=== PATIENT | female | born 1980 | race Caucasian/White ===

== ENCOUNTER 2017-01-18 13:13 | Emergency (ER) | payer OTHER ==
[~2017-01-18] VITALS: Ht 172.7 cm; Wt 68.0 kg
[2017-01-18] MEDS ORDERED: NOHOMEMEDICATIONS (13:36)
[2017-01-18] MEDS ORDERED: TRAMADOL 50 MG50 MG PO (14:43)
[2017-01-18 16:01] VITALS: BP 132/71
== END 2017-01-18 16:01 | disposition home or self-care (01) ==
LOC: ER 13:13
DX: M20.11 Hallux valgus (acquired), right foot (principal); F43.10 Post-traumatic stress disorder, unspecified; G43.909 Migraine, unspecified, not intractable, without status migrainosus; F41.9 Anxiety disorder, unspecified; F31.9 Bipolar disorder, unspecified; F10.99 Alcohol use, unspecified with unspecified alcohol-induced disorder

== ENCOUNTER 2018-01-31 10:35 | Emergency (ER) | payer OTHER ==
[~2018-01-31] VITALS: Ht 175.3 cm; Wt 61.2 kg
--- NOTE | ~2018-01-31 | EKG ---
[address] [place] [address] ELECTROCARDIOGRAM REPORT Name: MAUREEN GUERRERO Room #: REG EDGARD Wright#: [id number] Admission: 01/31/18 Attend Phys: Discharge: Date of : 84 Report #: [id number] THIS REPORT FOR: //name// [facility] ED Test Date: 2018-01-31 Test Time: 11:57:33 Pat Name: MAUREEN GUERRERO Department: Room: Gender: F Quality Specialist: ADA : 1980 Requested By: Sergio Farias Order Number: [id number] MD: Rob Ambrocio Measurements Intervals [place] Rate: 91 P: 53 MD: 147 QRS: -18 QRSD: 97 T: 1 QT: 400 QTc: 493 Interpretive Statements Sinus rhythm Borderline left axis deviation No previous ECG available for comparison Electronically Signed On 01-31-2018 13:30:52 CDT by Rob Ambrocio [email or web address] <ELECTRONICALLY SIGNED> By: Rob Ambrocio MD 01/31/18 1330 1157 1157 Rob Ambrocio MD /JUNG
[~2018-01-31 10:35] MED LIST: NOHOMEMEDICATIONS; ONDANSETRON HCL4 M2 PO; TRAMADOL 50 MG50 MG PO; XANAX 0.5 MG0.5 MG PO
[2018-01-31 11:05] LABS: URINE BILIRUBIN NEGATIVE (Negative); URINE BLOOD TRACE (Negative); URINE CLARITY CLEAR; URINE COLOR YELLOW; URINE GLUCOSE-RANDOM* NEGATIVE (Negative); URINE KETONES NEGATIVE (Negative); URINE LEUKOCYTES-REFLEX 1+ (Negative); URINE NITRITE-REFLEX NEGATIVE (Negative); URINE PROTEIN (DIPSTICK) NEGATIVE (Negative); URINE SPECIFIC GRAVITY <= 1.005 (1.005-1.035); URINE UROBILINOGEN 0.2 E.U./dl (0.2-1.0)
[2018-01-31 11:13] LABS: CASTS None Seen /LPF (None Seen); SQUAMOUS 4-10 Moderate /LPF (0-3); URINE WBC-REFLEX 0-5 Rare /HPF (0-5)
[2018-01-31 11:14] LABS: CRYSTALS None Seen /LPF (None Seen); URINE RBC None Seen /HPF (0-2)
[2018-01-31 11:23] LABS: ABSOLUTE NEUTROPHILS 6.3 thou/uL (1.4-8.2); BASOPHILS 0.4 % (0.0-2.0); EOSINOPHILS 0.1 % (0.0-3.0); HEMATOCRIT 46.4 % (37.0-47.0); LYMPHOCYTES 12.6 % (24.0-44.0); MCH 33.7 pg (26.0-34.0); MCHC 34.5 g/dL (28.0-37.0); MCV 97.5 fL (80.0-100.0); MONOCYTES 9.6 % (1.0-8.0); POLYS 77.3 % (36.0-66.0); RBC 4.76 mil/uL (4.20-5.00); RDW 14.4 % (10.5-14.5); WBC 8.1 thou/uL (4.0-11.0)
[2018-01-31 11:30] LABS: CALCIUM 9.9 mg/dL (8.5-10.1); CREATININE 0.8 mg/dL (0.6-1.0)
[2018-01-31 11:34] LABS: POTASSIUM 2.8 mmol/L (3.5-5.1)
[2018-01-31 11:42] LABS: ALBUMIN 3.9 g/dL (3.4-5.0); TOTAL PROTEIN 8.8 g/dL (6.4-8.2)
[2018-01-31 12:06] LABS: PLATELET COUNT 177 thou/uL (150-400); PLATELET ESTIMATE NORMAL
[2018-01-31] MEDS ORDERED: ONDANSETRON HCL4 M2 PO (15:23)
[2018-01-31] MEDS ORDERED: POTASSIUM20 PO (15:23)
[2018-01-31] MEDS ORDERED: PRILOSEC 20 MG20 MG PO (15:23)
[2018-01-31] MEDS ORDERED: CARAFATE 1 GM TA1 G1 PO (15:23)
== END 2018-01-31 15:25 | disposition home or self-care (01) ==
LOC: ER 10:35
PROVIDERS: Emergency Medicine
DX: K29.70 Gastritis, unspecified, without bleeding (principal); E87.6 Hypokalemia; E86.0 Dehydration; R94.5 Abnormal results of liver function studies; F41.9 Anxiety disorder, unspecified; F10.10 Alcohol abuse, uncomplicated; F31.9 Bipolar disorder, unspecified; G43.909 Migraine, unspecified, not intractable, without status migrainosus; G47.00 Insomnia, unspecified

== ENCOUNTER 2018-03-05 13:57 | Emergency (ER) | payer OTHER ==
[~2018-03-05] VITALS: Ht 172.7 cm; Wt 61.2 kg
[~2018-03-05 13:57] MED LIST changes: +CARAFATE 1 GM TA1 G1 PO; +POTASSIUM20 PO; +PRILOSEC 20 MG20 MG PO
[2018-03-05 14:47] LABS: URINE BILIRUBIN NEGATIVE (Negative); URINE BLOOD TRACE (Negative); URINE CLARITY CLEAR; URINE COLOR YELLOW; URINE GLUCOSE-RANDOM* NEGATIVE (Negative); URINE KETONES NEGATIVE (Negative); URINE LEUKOCYTES-REFLEX 2+ (Negative); URINE NITRITE-REFLEX NEGATIVE (Negative); URINE PROTEIN (DIPSTICK) NEGATIVE (Negative); URINE SPECIFIC GRAVITY <= 1.005 (1.005-1.035)
[2018-03-05 15:09] LABS: BACTERIA-REFLEX 1-9 Few /HPF (None Seen); CASTS None Seen /LPF (None Seen); CRYSTALS None Seen /LPF (None Seen); SQUAMOUS 0-3 Few /LPF (0-3); URINE RBC 0-2 Rare /HPF (0-2); URINE WBC-REFLEX 0-5 Rare /HPF (0-5)
[2018-03-05] MEDS ORDERED: ZOFRAN ODT4 MG DISSOLVE (15:14)
[2018-03-05 15:22] LABS: ABSOLUTE NEUTROPHILS 4.5 thou/uL (1.4-8.2); BASOPHILS 0.8 % (0.0-2.0); HEMATOCRIT 50.4 % (37.0-47.0); HEMOGLOBIN 17.2 gm/dL (12.0-15.0); LYMPHOCYTES 22.9 % (24.0-44.0); MCH 32.9 pg (26.0-34.0); MCHC 34.2 g/dL (28.0-37.0); MONOCYTES 7.2 % (1.0-8.0); PLATELET COUNT 242 thou/uL (150-400); POLYS 69.1 % (36.0-66.0); RBC 5.25 mil/uL (4.20-5.00); RDW 13.5 % (10.5-14.5); WBC 6.5 thou/uL (4.0-11.0)
[2018-03-05 15:29] LABS: CALCIUM 10.1 mg/dL (8.5-10.1); CREATININE 0.8 mg/dL (0.6-1.0)
[2018-03-05 15:32] LABS: POTASSIUM 2.9 mmol/L (3.5-5.1)
[2018-03-05] MEDS ORDERED: FOLIC ACID1 MG PO (16:56)
[2018-03-05] MEDS ORDERED: ZOFRAN4 MG PO (16:59)
[2018-03-05] MEDS ORDERED: HYDROXYZINE HCL50 MG PO (16:59)
[2018-03-05 19:38] VITALS: BP 138/99
== END 2018-03-05 19:39 | disposition home or self-care (01) ==
LOC: ER 13:57
PROVIDERS: Student in an Organized Health Care Education/Training Program
DX: F10.129 Alcohol abuse with intoxication, unspecified (principal); E83.42 Hypomagnesemia; E87.6 Hypokalemia; R11.2 Nausea with vomiting, unspecified; F43.10 Post-traumatic stress disorder, unspecified; G43.909 Migraine, unspecified, not intractable, without status migrainosus; G47.00 Insomnia, unspecified; F31.9 Bipolar disorder, unspecified; F41.9 Anxiety disorder, unspecified

== ENCOUNTER 2018-05-04 19:21 | Inpatient (IN) | payer OTHER ==
[~2018-05-04] VITALS: Ht 172.7 cm; Wt 68.9 kg
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
[~2018-05-04 19:21] MED LIST changes: +FOLIC ACID1 MG PO; +HYDROXYZINE HCL50 MG PO; +ZOFRAN ODT4 MG DISSOLVE; +ZOFRAN4 MG PO
[2018-05-04 19:30] VITALS: BP 122/83
[2018-05-04 19:45] LABS: HEMATOCRIT 34.5 % (37.0-47.0); HEMOGLOBIN 11.7 gm/dL (12.0-15.0); MCH 33.2 pg (26.0-34.0); MCHC 33.8 g/dL (28.0-37.0); MCV 98.2 fL (80.0-100.0); PLATELET COUNT 363 thou/uL (150-400); RBC 3.51 mil/uL (4.20-5.00); RDW 14.7 % (10.5-14.5); WBC 11.6 thou/uL (4.0-11.0)
[2018-05-04 19:54] LABS: CALCIUM 8.2 mg/dL (8.5-10.1); CREATININE 0.5 mg/dL (0.6-1.0)
[2018-05-04 20:00] LABS: URINE BILIRUBIN NEGATIVE (Negative); URINE BLOOD NEGATIVE (Negative); URINE CLARITY CLEAR; URINE COLOR YELLOW; URINE GLUCOSE-RANDOM* NEGATIVE (Negative); URINE KETONES NEGATIVE (Negative); URINE LEUKOCYTES-REFLEX NEGATIVE (Negative); URINE NITRITE-REFLEX NEGATIVE (Negative); URINE PROTEIN (DIPSTICK) NEGATIVE (Negative); URINE SPECIFIC GRAVITY < 1.005 (1.005-1.035); URINE UROBILINOGEN 0.2 E.U./dl (0.2-1.0)
[2018-05-04 20:00] LABS: ALBUMIN 2.1 g/dL (3.4-5.0); APTT 27.5 Seconds (24.5-32.8); INR 1.3; PROTIME 13.9 Seconds (9.3-11.4); TOTAL BILIRUBIN 7.3 mg/dL (<0.1-1.0); TOTAL PROTEIN 7.2 g/dL (6.4-8.2)
[2018-05-04 20:07] LABS: ABSOLUTE NEUTROPHILS 7.8 thou/uL (1.4-8.2)
[2018-05-04 20:08] LABS: ANISOCYTOSIS 1+
[2018-05-04 20:34] LABS: AMP/METHAMP Negative (Negative); BARBITURATES Negative (Negative); BENZODIAZEPINES Negative (Negative); COCAINE Negative (Negative); METHADONE Negative (Negative); OPIATES Negative (Negative); PCP Negative (Negative)
[2018-05-04 21:29] VITALS: BP 117/81
[2018-05-04] MEDS ORDERED: CARAFATE 1 GM TA1 G1 PO (21:52)
[2018-05-04 22:04] VITALS: BP 112/78
[2018-05-05 04:36] VITALS: BP 105/73
--- NOTE | 2018-05-05 06:22 | NUR ---
Received pt from ED at 0215. Pt is resting in bed with at bedside. Stomach was looking distended. Eyes yellow. She was complaining about abd pain. Call FIELD TECHNICIAN and got fentanyl I.V approved for pain. LST, Bili and serum alcohol elevated. G.I consult is scheduled. She is running sinus tachy on tele. She is up at [facility]. AOX4. I.V is at right ac. No identified needs at the moment. Call light within reach. Will continue to monitor.
[2018-05-05 07:04] LABS: HEMATOCRIT 32.3 % (37.0-47.0)
--- NOTE | 2018-05-05 08:53 | EKG ---
[address] [address] ELECTROCARDIOGRAM REPORT Name: MAUREEN GUERRERO Room #: 460-P ADM IN M.R.#: [id number] Admission: 05/04/18 Attend Phys: Robbi Herron MD Discharge: Date of : 84 Report #: [id number] THIS REPORT FOR: //name// [facility] ED Test Date: 2018-05-04 Test Time: 21:18:56 Pat Name: MAUREEN GUERRERO Department: Room: [facility] Gender: F Dock Loader: jessica : 1980 Requested By: Mack Grajeda Order Number: [id number] MD: Dennys Huang Measurements Intervals [place] Rate: 110 P: 60 IN: 152 QRS: -16 QRSD: 101 T: -25 QT: 383 QTc: 519 Interpretive Statements Sinus tachycardia Borderline left axis deviation Borderline T abnormalities, diffuse leads Prolonged QT interval Compared to ECG 01/31/2018 11:57:33 T-wave abnormality now present Prolonged QT interval now present Electronically Signed On 05-05-2018 8:53:01 [employer] by Dennys Huang [email or web address] <ELECTRONICALLY SIGNED> By: Dennys Huang MD, [facility] 05/05/18 0853 17 17 Dennys Huang MD, [facility] /EPI
[2018-05-05 11:27] LABS: CLARITY CLOUDY; COLOR YELLOW; SOURCE RIGHT PARACENTESIS; TOTAL VOLUME 58 mL
[2018-05-05 12:12] LABS: BF NEUTROPHILS 12; BF NUCLEATED CELLS 74; BF RBC 142
--- NOTE | 2018-05-05 13:00 | NUR ---
chart reviewed, cm visited pt at bedside,ask pt if ok to visit with visitor in room "friend tina, yes visit here. no can not visit at home"/za, pt preferrs going by za, she is pleasant with flat affect, little to no eye contacted. noted odor in room. noted pt whites of eyes are yellow. pt is a & o x 3 with confusion and forgetfulness. pt and friend reported " in house with friend tina, have 1 kid, he has 2 kids, independent when feeling ok. had couple falls. fall in [place] fx lumbar and collar bone. have ptsd, going to have sleep study to get cpap for apnea at [facility]. inpt [facility] in [facility]. no other home health or rehab in past"/za. cm education on aa, [place], having support out in community for acholic addiction " i do not need and support"/za. pt refused resources. information passed on to bedside nurse and will cont following as needed for dc needs. dcp home
[2018-05-05 17:09] LABS: HAV IgM AB (ANTI-HAV IgM) Negative (Negative); HEPATITIS B SURFACE AG Negative (Negative); HEPATITIS C VIRUS AB 0.2 (0.0-0.9)
[2018-05-05 19:17] VITALS: BP 124/89
--- NOTE | 2018-05-05 19:53 | NUR ---
Pt complianed of pain of a 10/10 and nausea with no vomiting, medication given during shift change. Pt was then taken down by radiology for a paracenthesis, HEATHER and other diagnostics for the gallbladder and liver. Pt had no fever or chills after she returned from radiology. Morning medications were given but had to be crushed and mixed with apple sauce since pt's gag reflex is not good. Currently on [facility] protocol as discussed with Dr. Herron. new orders given by GI.
[2018-05-06 04:06] VITALS: BP 115/81
--- NOTE | 2018-05-06 05:26 | NUR ---
Assumed care at 1845. Pt has been scoring low on the CIWA protocol. Has had any episode of N/V. No indications to any visual or auditory disturbances. Have given her twice 1mg of Ativan. No identified needs at the moment. Will continue to monitor.
[2018-05-06 05:30] LABS: ABSOLUTE NEUTROPHILS 4.6 thou/uL (1.4-8.2); BASOPHILS 1.7 % (0.0-2.0); EOSINOPHILS 0.8 % (0.0-3.0); HEMOGLOBIN 10.5 gm/dL (12.0-15.0); LYMPHOCYTES 25.5 % (24.0-44.0); MCH 34.1 pg (26.0-34.0); MCHC 33.8 g/dL (28.0-37.0); MCV 100.9 fL (80.0-100.0); MONOCYTES 7.9 % (1.0-8.0); POLYS 64.1 % (36.0-66.0); RBC 3.07 mil/uL (4.20-5.00); WBC 7.2 thou/uL (4.0-11.0)
[2018-05-06 05:37] LABS: PLATELET COUNT 238 thou/uL (150-400)
[2018-05-06 05:46] LABS: ALBUMIN 1.7 g/dL (3.4-5.0); CALCIUM 7.4 mg/dL (8.5-10.1); CREATININE 0.7 mg/dL (0.6-1.0); MAGNESIUM 1.6 mg/dL (1.8-2.4); POTASSIUM 3.6 mmol/L (3.5-5.1); TOTAL BILIRUBIN 7.6 mg/dL (<0.1-1.0); TOTAL PROTEIN 6.1 g/dL (6.4-8.2)
[2018-05-06 08:10] VITALS: BP 113/80
[2018-05-06 13:56] VITALS: BP 109/71
[2018-05-06 14:38] VITALS: BP 116/74
[2018-05-06 15:06] LABS: BODY FLUID ALBUMIN 0.7 g/dL (()); BODY FLUID AMYLASE 10 U/L (()); BODY FLUID GLUCOSE 111 mg/dL (()); BODY FLUID LDH 71 IU/L (()); BODY FLUID PROTEIN 1.8 g/dL (())
[2018-05-06 19:31] VITALS: BP 112/79
--- NOTE | 2018-05-06 19:40 | NUR ---
A/OX4, ON CIWA FOR ETOH WITHDRAWL.SCORES 6 ON CIWA, SUSTAINED STACH 130'S AND 150'S WITH ACTIVITY NOTIFIED DR MCMAHON WITH ORDERS FOR FLUIDS AT 125ML/HR AND NEW ORDERS OF LORAZAPAM FOR WITHDRAWLS. DIET CHANGED TO REGULAR PER GI WITH EPISODE OF STOOL INCONTINENCE. STACH LEVELED DOWN TO 110-120'S AFTER 3PM. ANXIETY AND PAIN MANAGED WITH MEDS. FALL PRECAUTIONS IN PLACE. STAFF TO ANTICIPATE NEEDS. CALL LIGHT IN REACH.
--- NOTE | 2018-05-07 03:55 | NUR ---
Pt. rested quietly at intervals during the night when checked on during frequent rounds. She c/o abdominal pain and was given iv pain meds (see emar) with some relief of pain noted. See poc for cwal score.
[2018-05-07 04:00] VITALS: BP 122/83
[2018-05-07 05:31] LABS: ABSOLUTE NEUTROPHILS 5.4 thou/uL (1.4-8.2); BASOPHILS 1.2 % (0.0-2.0); EOSINOPHILS 0.7 % (0.0-3.0); HEMATOCRIT 30.6 % (37.0-47.0); HEMOGLOBIN 10.5 gm/dL (12.0-15.0); LYMPHOCYTES 16.3 % (24.0-44.0); MCH 34.7 pg (26.0-34.0); MCHC 34.2 g/dL (28.0-37.0); MCV 101.4 fL (80.0-100.0); MONOCYTES 6.8 % (1.0-8.0); PLATELET COUNT 251 thou/uL (150-400); RBC 3.02 mil/uL (4.20-5.00); RDW 14.3 % (10.5-14.5); WBC 7.3 thou/uL (4.0-11.0)
[2018-05-07 05:38] LABS: INR 1.4; PROTIME 14.3 Seconds (9.3-11.4)
[2018-05-07 05:46] LABS: ALBUMIN 1.6 g/dL (3.4-5.0); CALCIUM 7.4 mg/dL (8.5-10.1); CREATININE 0.6 mg/dL (0.6-1.0); POTASSIUM 3.7 mmol/L (3.5-5.1)
[2018-05-07 05:55] LABS: TOTAL PROTEIN 6.1 g/dL (6.4-8.2)
[2018-05-07 07:35] VITALS: BP 95/61
[2018-05-07 13:55] VITALS: BP 115/81
[2018-05-07 19:30] VITALS: BP 101/66
[2018-05-08 04:06] VITALS: BP 110/80
--- NOTE | 2018-05-08 05:10 | NUR ---
Pt. rested quietly during the night when checked on during frequent rounds. She c/o abdominal pain and was given iv pain meds (see emar) with some relief of pain noted. No c/o nausea. Bed alarm is on.
[2018-05-08 05:16] LABS: HEMATOCRIT 30.6 % (37.0-47.0); HEMOGLOBIN 10.2 gm/dL (12.0-15.0); MCH 34.2 pg (26.0-34.0); MCHC 33.4 g/dL (28.0-37.0); MCV 102.3 fL (80.0-100.0); RBC 2.99 mil/uL (4.20-5.00); WBC 8.1 thou/uL (4.0-11.0)
[2018-05-08 05:32] LABS: ALBUMIN 1.5 g/dL (3.4-5.0); CALCIUM 7.8 mg/dL (8.5-10.1); CREATININE 0.6 mg/dL (0.6-1.0); MAGNESIUM 1.8 mg/dL (1.8-2.4); POTASSIUM 3.7 mmol/L (3.5-5.1); TOTAL PROTEIN 5.8 g/dL (6.4-8.2)
[2018-05-08 07:30] VITALS: BP 113/72
[2018-05-08 16:00] VITALS: BP 107/63
--- NOTE | 2018-05-08 16:17 | NUR ---
PT STABLE THROUGHOUT SHIFT. PT UP TO CHAIR THROUGHOUT SHIFT WHICH SHE TOLERATED WELL. PT C/O PAIN WHICH WAS ADDRESSED WITH PAIN MEDS. PT RESTING COMFORTABLY.
[2018-05-08 19:12] VITALS: BP 114/80
[2018-05-09 03:16] VITALS: BP 95/59
[2018-05-09 05:41] LABS: HEMATOCRIT 29.5 % (37.0-47.0); HEMOGLOBIN 9.8 gm/dL (12.0-15.0); MCH 34.5 pg (26.0-34.0); MCHC 33.3 g/dL (28.0-37.0); MCV 103.6 fL (80.0-100.0); RBC 2.85 mil/uL (4.20-5.00); RDW 14.1 % (10.5-14.5)
[2018-05-09 06:05] LABS: ALBUMIN 1.5 g/dL (3.4-5.0); CALCIUM 7.7 mg/dL (8.5-10.1); CREATININE 0.7 mg/dL (0.6-1.0); MAGNESIUM 1.8 mg/dL (1.8-2.4); POTASSIUM 3.8 mmol/L (3.5-5.1); TOTAL BILIRUBIN 6.5 mg/dL (<0.1-1.0)
[2018-05-09 06:06] LABS: TOTAL PROTEIN 5.5 g/dL (6.4-8.2)
--- NOTE | 2018-05-09 06:32 | NUR ---
Assumed care at 1845. Pt resting in bed. Pt has been scoring low on CIWA. No signs of visual or auditory hallucinations. Pt still is having abdominal pain. Gave her some fentanyl. She has been NPO since midnight has a pericentesis scheduled this morning. No identified needs at the moment. Will continue to monitor.
[2018-05-09 07:32] VITALS: BP 97/70
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
[2018-05-09 14:11] LABS: INR 1.3
[2018-05-09 14:38] VITALS: BP 114/77
--- NOTE | 2018-05-09 18:40 | NUR ---
PT STABLE THROUGHOUT SHIFT. PT C/O PAIN AND ANXIETY, MEDICATIONS GIVEN FOR BOTH WHICH OFFERED RELIEF. PT HAD PARACENTESIS WHICH SHE TOLERATED WELL. PT RESTING COMFORTABLY.
[2018-05-09 19:36] VITALS: BP 106/71
[2018-05-10 03:06] VITALS: BP 102/68
[2018-05-10 05:55] LABS: HEMATOCRIT 28.9 % (37.0-47.0); HEMOGLOBIN 9.6 gm/dL (12.0-15.0); MCH 34.3 pg (26.0-34.0); MCHC 33.4 g/dL (28.0-37.0); RBC 2.81 mil/uL (4.20-5.00); RDW 14.3 % (10.5-14.5); WBC 8.4 thou/uL (4.0-11.0)
[2018-05-10 06:11] LABS: ALBUMIN 1.4 g/dL (3.4-5.0); CALCIUM 7.6 mg/dL (8.5-10.1); CREATININE 0.7 mg/dL (0.6-1.0); MAGNESIUM 1.9 mg/dL (1.8-2.4); POTASSIUM 3.6 mmol/L (3.5-5.1); TOTAL BILIRUBIN 5.1 mg/dL (<0.1-1.0); TOTAL PROTEIN 5.3 g/dL (6.4-8.2)
[2018-05-10 07:32] VITALS: BP 108/74
--- NOTE | 2018-05-10 07:36 | NUR ---
PROGRESS PT A/O X4, RATING ABDOMINAL PAIN AN 8 OUT OF 0/10 SCALE TAKING 50 MCG OF FENTANYL WITH EFFECT FOR PAIN, ATIVAN FOR ANXIETY, DENIES ANY S/S OF WITHDRAWL VSS, UP AD VALERIE VOIDING QS HAD A LOOSSE STOOL THIS AM. TOLERATING DIET AND ADEQUATE PO INTAKE CONTINUE POC.
--- NOTE | 2018-05-10 12:08 | PATH ---
[facility] [address] [place] [address] PATHOLOGY RPT PROCEDURE Name: MAUREEN GUERRERO Room #: 460-P ADM IN M.R.#: [id number] Admission: 05/04/18 Date of : 84 Discharge: Report #: [id number] Path Case #: [id number] Note [facility] Accession Number: [id number] TESTS RESULT FLAG UNITS REF RANGE LAB Clinician Provided Cytology Information No. of containers..01 Other (Miscellaneous) Source: ABDOMNIAL FLUID DIAGNOSIS: 02 ABDOMNIAL FLUID NEGATIVE FOR MALIGNANT CELLS. SCANT CELLULARITY. MESOTHELIAL CELLS ARE PRESENT. REACTIVE CELLULAR CHANGES NOTED. THIS INTERPRETATION INCLUDES EVALUATION OF A CELL BLOCK. Diagnosis provided b Gayatri Parra MD, Pathologist NPI- [id number] Signed out by: 03 Gayatri Parra MD, Pathologist NPI- [id number] Performed by: 01 Az Holland, Science Tutor ([facility]) Gross description: 01 30 ML, YELLOW, CLOUDY /LCS FLAG LEGEND: L-Low Normal,H-High Normal,LL-Alert Low,HH-Alert High <-Panic Low,>-Panic High,A-Abnormal,AA-Critical Abnormal Performed at: 01 [facility] [address] [place] [address] Alberto Jacobo MD, 02 [facility] [address] [address] Trent Rivera MD, [address] [address] Gayatri Parra MD, Specimen Comment: A duplicate report has been generated due to demographic updates. Performed at: 01 [facility] [address] [place] [address] PATHOLOGY RPT PROCEDURE Name: MAUREEN GUERRERO Room #: 460-P ADM IN M.R.#: [id number] Admission: 05/04/18 Date of : 84 Discharge: Report #: [id number] Path Case #: [id number] [address], [place], [place] [id number] MD Alberto Jacobo MD Phone: [phone]
[2018-05-10 13:40] VITALS: BP 113/73
--- NOTE | 2018-05-10 15:04 | NUR ---
PT STABLE THROUGHOUT SHIFT. PT C/O PAIN AND ANXIETY, MEDICATION GIVEN FOR BOTH. FAMILY IN TO VISIT, PT RESTING COMFORTABLY.
--- NOTE | 2018-05-10 15:20 | NUR ---
CARE TEAM INDICATED PT IS PROGRESSIGN TOWARD GOAL OF DC. PT HADN'T BEEN RECEPTIVE TO RESOURCES RELATED TO ETHOL CESSATION. CM TO FOLLOW INDICATED WITH DC PLANNING.
[2018-05-10 20:26] VITALS: BP 110/71
[2018-05-11 05:12] VITALS: BP 114/71
[2018-05-11 08:28] VITALS: BP 110/71
[2018-05-11 13:35] LABS: INR 1.4; PROTIME 14.9 Seconds (9.3-11.4)
[2018-05-11 13:40] LABS: ALBUMIN 1.4 g/dL (3.4-5.0); CALCIUM 7.8 mg/dL (8.5-10.1); CREATININE 0.6 mg/dL (0.6-1.0); PHOSPHORUS 2.6 mg/dL (2.5-4.9); POTASSIUM 3.6 mmol/L (3.5-5.1); TOTAL BILIRUBIN 6.1 mg/dL (<0.1-1.0); TOTAL PROTEIN 5.6 g/dL (6.4-8.2)
[2018-05-11 14:30] VITALS: BP 114/75
[2018-05-11 19:42] VITALS: BP 115/84
--- NOTE | 2018-05-11 20:08 | NUR ---
Pt stable through out the shift, is able to ambulate with ease in her room from bed to toilet. CIWA score was at a 9, lorazepam given. Dressing on paracenthesis site changed,Oral medication needs to be crushed and given with apple sauce. No other issues or concerns verbalized.
--- NOTE | 2018-05-12 02:38 | NUR ---
Assumed care at 1845. Pt resting in bed still having abdominal pain. Gave her some fentanyl for pain. Discontinued IV on left forearm and started a new one on the right forearm. Pt denies N/V. Shes up at [facility]. Vitals stable. No identified needs at the moment. Will continue to monitor.
[2018-05-12 03:33] VITALS: BP 99/58
[2018-05-12 05:10] LABS: HEMATOCRIT 29.9 % (37.0-47.0); HEMOGLOBIN 9.7 gm/dL (12.0-15.0); MCH 33.8 pg (26.0-34.0); MCHC 32.6 g/dL (28.0-37.0); MCV 103.8 fL (80.0-100.0); RBC 2.88 mil/uL (4.20-5.00); RDW 14.1 % (10.5-14.5); WBC 8.3 thou/uL (4.0-11.0)
[2018-05-12 05:21] LABS: INR 1.4; PROTIME 14.7 Seconds (9.3-11.4)
[2018-05-12 05:27] LABS: ALBUMIN 1.4 g/dL (3.4-5.0); CREATININE 0.5 mg/dL (0.6-1.0); POTASSIUM 3.5 mmol/L (3.5-5.1); TOTAL BILIRUBIN 5.4 mg/dL (<0.1-1.0)
[2018-05-12 05:35] LABS: TOTAL PROTEIN 5.2 g/dL (6.4-8.2)
[2018-05-12 14:25] VITALS: BP 98/59
[2018-05-12 19:12] VITALS: BP 109/74
--- NOTE | 2018-05-12 20:16 | NUR ---
Pt had paracenthesis 1.9L of fluid taken out. Pt stable during the shift, oral and chung meds given. Uses the call light appropritately. No nausea or vomiting noted.
[2018-05-13 03:27] VITALS: BP 93/58
--- NOTE | 2018-05-13 06:03 | NUR ---
Pt. rested quietly at intervals during the night when checked on during frequent rounds. She was given ivp pain meds (see emar) for c/o abdominal pain with some relief noted. Prn ativan given for some restlessness (see emar) with relief noted. No other complaints offered.
[2018-05-13 07:44] VITALS: BP 107/73
--- NOTE | 2018-05-13 12:30 | NUR ---
cm visited with pt at bedside rt alcohol support groups and dr tompkins consult. " ok for to visit me"/pt. cm provided list choice including aa, [place] [employer] for pt. provided safe net packet as well with list of [place] support groups for alcohol. " ok "/pt. will cont following as needed for dc needs.
[2018-05-13 15:11] VITALS: BP 109/77
[2018-05-13 16:53] LABS: ALBUMIN 1.4 g/dL (3.4-5.0); DIRECT BILIRUBIN 4.6 mg/dL (<0.1-0.3); TOTAL BILIRUBIN 5.3 mg/dL (<0.1-1.0); TOTAL PROTEIN 5.5 g/dL (6.4-8.2)
[2018-05-13 16:54] LABS: INR 1.3
--- NOTE | 2018-05-13 20:05 | NUR ---
Pt stable during the shift, had 1 bout of nausea and vomiting which was relieved by anti emetics. Pt walked the halls with her partner. CIWA protocol followed. Low sodium diet promoted, Pain medication given as needed. Pt is now willing to look at resources to help herslef and other support groups,
[2018-05-13 20:17] VITALS: BP 111/71
--- NOTE | 2018-05-14 01:51 | NUR ---
PT'S SON AT BEDSIDE AT START OF SHIFT.PT C/O PAIN,MGED WITH IV PAIN MED,ATIVAN GIVEN PER PT'S REQUEST.UP ADLIB IN ROOM.PT CONT ON CIWA PROTOCOL.ABD STILL DISTENDED.PT IN A GOOD MOOD THIS SHIFT,COOPERATIVE,HAD A BRIEF CONVERSATION WITH STAFF.MEDS CRUSHED IN APPLESAUCE PER PT'S REQUEST.PT RECEPTIVE OF LOOKING INTO SUPPORT GROUPS AND QUITTING ALCOHOL.PT RESTING ON HER BED AT THIS TIME.CALL LIGHT WITHIN REACH.
[2018-05-14 04:20] VITALS: BP 94/64
[2018-05-14 06:11] LABS: ALBUMIN 1.6 g/dL (3.4-5.0); CALCIUM 8.2 mg/dL (8.5-10.1); CREATININE 0.6 mg/dL (0.6-1.0); POTASSIUM 3.3 mmol/L (3.5-5.1); TOTAL BILIRUBIN 4.9 mg/dL (<0.1-1.0); TOTAL PROTEIN 5.6 g/dL (6.4-8.2)
[2018-05-14 11:05] VITALS: BP 105/73
[2018-05-14 16:01] VITALS: BP 114/79
[2018-05-14 19:12] VITALS: BP 107/71
--- NOTE | 2018-05-14 19:42 | NUR ---
ASSUMED PT CARE AT 0700H. PT A&O X4. PT HAS NO S/S OF DISTRESS. PT ABLE TO BE ASSESSED ON CIWA. PT CURRENTLY ON 9. PT TOLERATES MEDS. PT STATES ABD PAIN ABRAHAM ON SIDES. PT AMBULATES TO BATHROOM. PT'S CALL LIGHT WITHIN REACH AND CONT TO BE MONITORED FOR SAFETY.
[2018-05-15 04:26] VITALS: BP 102/68
--- NOTE | 2018-05-15 06:43 | NUR ---
PT MAKING SLOW PROGRESS TOWARDS GOALS. DOES STATE THAT SHE FEELS ANXIOUS BUT NO WRINGING OF HANDS OR RESTLESSNESS OBSERVED. SUPPORT GIVEN. ATIVAN GIVEN PER ORDERS.
[2018-05-15 07:00] VITALS: BP 113/73
[2018-05-15 11:05] LABS: IgA 409 mg/dL (87-352); IgG 1411 mg/dL (700-1600); IgM 168 mg/dL (26-217)
[2018-05-15 12:54] VITALS: BP 108/75
[2018-05-15 20:13] VITALS: BP 100/68
[2018-05-16 04:18] VITALS: BP 89/56
--- NOTE | 2018-05-16 05:41 | NUR ---
Assumed care at 1845. Pt resting in bed. She has been NPO since midnight. BP was low had to hold the fentanyl will re-check later. Pt is still having abdominal pain. No signs of agitation, visual or auditory hallucinations. Will continue to monitor.
[2018-05-16 06:10] LABS: HEMATOCRIT 31.9 % (37.0-47.0); HEMOGLOBIN 10.4 gm/dL (12.0-15.0); MCH 33.3 pg (26.0-34.0); MCHC 32.7 g/dL (28.0-37.0); MCV 101.8 fL (80.0-100.0); RBC 3.13 mil/uL (4.20-5.00); RDW 12.9 % (10.5-14.5); WBC 11.9 thou/uL (4.0-11.0)
[2018-05-16 06:24] LABS: ALBUMIN 1.5 g/dL (3.4-5.0); CALCIUM 7.9 mg/dL (8.5-10.1); CREATININE 0.7 mg/dL (0.6-1.0); POTASSIUM 3.2 mmol/L (3.5-5.1); TOTAL BILIRUBIN 5.5 mg/dL (<0.1-1.0); TOTAL PROTEIN 5.5 g/dL (6.4-8.2)
[2018-05-16 06:36] VITALS: BP 114/66
[2018-05-16 07:51] VITALS: BP 107/74
[2018-05-16 13:06] LABS: INR 1.4; PROTIME 14.8 Seconds (9.3-11.4)
[2018-05-16 17:24] VITALS: BP 105/73
[2018-05-16 19:26] VITALS: BP 112/77
[2018-05-17 03:48] VITALS: BP 101/69
[2018-05-17 05:26] LABS: HEMATOCRIT 34.4 % (37.0-47.0); HEMOGLOBIN 11.5 gm/dL (12.0-15.0); MCH 33.4 pg (26.0-34.0); MCHC 33.4 g/dL (28.0-37.0); MCV 99.9 fL (80.0-100.0); RBC 3.44 mil/uL (4.20-5.00); RDW 12.8 % (10.5-14.5)
[2018-05-17 05:39] LABS: ALBUMIN 1.6 g/dL (3.4-5.0); CALCIUM 8.2 mg/dL (8.5-10.1); CREATININE 0.7 mg/dL (0.6-1.0); POTASSIUM 4.3 mmol/L (3.5-5.1); TOTAL BILIRUBIN 6.2 mg/dL (<0.1-1.0); TOTAL PROTEIN 5.9 g/dL (6.4-8.2)
--- NOTE | 2018-05-17 06:39 | NUR ---
Pt a/o x 4. RA. VSS. ST. C/o abdominal pain/anxiety, pain meds/anti-anxiety meds given PRN per order. Pt resting comfortably in bed at this time. No apparent distress noted. Bed alarm on. Fall precautions maintained. Call light within reach. Will continue to monitor.
[2018-05-17 07:25] VITALS: BP 98/66
[2018-05-17 09:13] LABS: ANA INTERPRETATION Negative (Negative)
--- NOTE | 2018-05-17 09:45 | NUR ---
cm visited with pt at bedside, rt requested information about dpoa paper work. provided booklet with education and if pt decides to fill out, she stated understands that will let nurse know so can get it notarized. provided outside hospital resources ie, private duty, and senior blue book. pt cont to talk about how going to stay sober and get new liver and then would talk about will if i don't i guess looking at hospice. cm provided education on having support at home, re-education on information provided for aa, and [employer]. active listing during visit, offer to see if pt wanted to speak with spiritual care " i will call if i do they came to visit yesterday, not going home till next week. have plan to move"/yi. discussed with pt possible dc today per " oh no that is not going to work, need another day, to get stuff in line, need equip and bed."/ pt. cm passed on information on visit to bedside nurse to continue following.
[2018-05-17] MEDS ORDERED: PRAZOSIN HCL1 MG PO (11:26)
[2018-05-17] MEDS ORDERED: LASIX 40 MG TAB40 M2 PO (11:26)
[2018-05-17] MEDS ORDERED: ZOLOFT 50 MG TA50 M1 PO (11:26)
[2018-05-17] MEDS ORDERED: SPIRONOLACTONE100 M1 PO (11:26)
[2018-05-17] MEDS ORDERED: GABAPENTIN 100100 MG PO (11:26)
[2018-05-17] MEDS ORDERED: OXYCODONE HCL10 MG PO (11:29)
[2018-05-17 12:16] LABS: URINE BILIRUBIN NEGATIVE (Negative); URINE BLOOD NEGATIVE (Negative); URINE CLARITY CLEAR; URINE COLOR YELLOW; URINE GLUCOSE-RANDOM* NEGATIVE (Negative); URINE KETONES NEGATIVE (Negative); URINE LEUKOCYTES NEGATIVE (Negative); URINE NITRITE NEGATIVE (Negative); URINE PROTEIN (DIPSTICK) NEGATIVE (Negative); URINE UROBILINOGEN 0.2 E.U./dl (0.2-1.0)
[2018-05-17 15:18] VITALS: BP 95/63
[2018-05-17 19:24] VITALS: BP 105/70
--- NOTE | 2018-05-18 03:56 | NUR ---
Pt. rested quietly at intervals during the night when checked on during frequent rounds. She c/o abdominal pain and was medicated with pain meds (see emar) with some relief. She was requesting some promethazine for nausea and I spoke to Elizabeth GARCIA about this. New order for po promethazine (see cpoe). Promethazine given (see emar) which was helpful. She also c/o some anxiety and po ativan given (see emar) with some relief noted.
[2018-05-18 03:58] VITALS: BP 105/75
[2018-05-18 06:10] LABS: ABSOLUTE NEUTROPHILS 8.9 thou/uL (1.4-8.2); BASOPHILS 1.2 % (0.0-2.0); EOSINOPHILS 0.9 % (0.0-3.0); HEMATOCRIT 31.2 % (37.0-47.0); HEMOGLOBIN 10.5 gm/dL (12.0-15.0); LYMPHOCYTES 14.8 % (24.0-44.0); MCH 33.7 pg (26.0-34.0); MCHC 33.7 g/dL (28.0-37.0); MONOCYTES 7.6 % (1.0-8.0); PLATELET COUNT 226 thou/uL (150-400); POLYS 75.5 % (36.0-66.0); RBC 3.12 mil/uL (4.20-5.00); RDW 12.7 % (10.5-14.5); WBC 11.8 thou/uL (4.0-11.0)
[2018-05-18 06:25] LABS: ALBUMIN 1.4 g/dL (3.4-5.0); CALCIUM 8.2 mg/dL (8.5-10.1); CREATININE 0.7 mg/dL (0.6-1.0); POTASSIUM 4.6 mmol/L (3.5-5.1); TOTAL PROTEIN 5.5 g/dL (6.4-8.2)
[2018-05-18 07:26] VITALS: BP 101/64
--- NOTE | 2018-05-18 15:05 | NUR ---
CARE TEAM INDICATED THAT PT IS MEDICALLY STABLE TO DISHCARGE HOME THIS DAY. PT HAS BEEN GIVEN RESOURCES FOR OP SUBSTANCE ABUSE PROGRAMING. NO OTHER CM INTERVENTION INDICATED AT THIS TIME. CASE CLOSED.
--- NOTE | 2018-05-18 16:38 | NUR ---
Assumed pt are at 0645. pt was a/ox4 with no issues or concerns. will continue to monitor. no signs of distress although requested pain meds as well as anti anxitey medication
[2018-05-18 17:06] VITALS: BP 99/58
[2018-05-18 19:09] VITALS: BP 101/72
[2018-05-19 03:34] VITALS: BP 104/67
--- NOTE | 2018-05-19 03:36 | NUR ---
patient aox4 makes needs known.pain controlled this shift. patient denied no shortness of air or distress noted this shift. patient has ascites, bowel sounds present in all 4 quads. patient ambulates slowly to the bathroom with unsteady gaits. manuel done this shift and charted on intervention. patient in bed asleep at this time breathing regular and unlaboured.
[2018-05-19 07:28] VITALS: BP 105/65
--- NOTE | 2018-05-19 13:46 | NUR ---
TOWARDS POC PT A/O X4, VSS AFEBRILE. PRN PAIN AND ANXIETY MEDS GIVEN. 500ML BOLUS IV GIVEN ORDERED. NO CONCERNS VOICED. WILL CONTINUE TO MONITOR.
[2018-05-19] MEDS ORDERED: PEPCID20 MG PO (14:23)
[2018-05-19] MEDS ORDERED: CARAFATE 1 GM TA1 G1 PO (14:23)
[2018-05-19] MEDS ORDERED: ZOFRAN ODT4 MG DISSOLVE (14:23)
[2018-05-19] MEDS ORDERED: FOLIC ACID1 MG PO (14:23)
[2018-05-19 14:33] VITALS: BP 105/65
[2018-05-19 15:23] VITALS: BP 105/65
--- NOTE | 2018-05-23 09:54 | HC ---
[facility] [place] [address] CONSULTATION Name: CESARMAUREEN OLSEN Room #: 460-P [facility] IN M.R.#: [id number] Admission: 05/04/18 Attend Phys: Robbi Herron MD Discharge: 05/19/18 Date of : 82 Report #: [id number] THIS REPORT FOR: //name// CC: FAM unknown AMANDA MELANY Herron DATE OF SERVICE: 05/14/2018 HISTORY OF PRESENT ILLNESS: This is a 37-year-old female patient whose consultation was requested because apparently this patient had a nerve conduction study, which demonstrated findings consistent with neuropathy. I do not have any of the report of her testing. It was done as an outpatient. As far as symptom is concerned, she indicates that she is not concerned with her legs at all at the moment. Her concern is her ascites. She was having some symptoms in the leg, which has been masked by much more pronounced symptoms in body at the moment. REVIEW OF SYSTEMS: Indicate that this patient has a pretty significant history for alcohol abuse. Records indicate that she has some mood disorder and posttraumatic stress disorder. She has been seen by his psychiatrist. She has been admitted with multiple problems including abdominal pain, jaundice, ascites. She had some GI issues like vomiting that may have aggravated her injury secondary to alcohol. I talked to the nurses last night and briefly saw her and again saw today and they had indicated that the patient has improved as far as mentation and other problem is concerned. There is some history of anxiety, migraine. She has a pretty significant history related to her psychiatric problems in the past, which has been summarized in H and P. REVIEW OF SYSTEMS: A 14-point review of system was carried out and this was relevant 14-point review of system. PAST MEDICAL HISTORY: Positive for significant psychiatric problems, nausea, vomiting, posttraumatic stress disorder. FAMILY HISTORY: Unremarkable. SOCIAL HISTORY: She has pretty significant history of alcohol abuse. PHYSICAL EXAMINATION: Indicate that this patient is alert, responsive. She is able to follow simple command. She is oriented. Cranial nerve examination appears mostly unremarkable. She does have some subjective paresthesias in all 4 extremities. Her reflexes actually are elicitable in the lower extremities. Her position sense is present. Tone looks unremarkable. I could not look at the fundus. There is no respiratory difficulty or rhonchi. Blood pressure is 105/73, respirations 16, pulse is 102, temperature is 99.0. She is [facility] [address] [place] [address] CONSULTATION Name: MAUREEN GUERRERO Room #: 460-P [facility] IN .R.#: [id number] Admission: 05/04/18 Attend Phys: oRbbi Herron MD Discharge: 05/19/18 Date of : 82 Report #: [id number] moderately-built individual. LABORATORY DATA: Indicate hemoglobin of 9.7. Sodium is 129. She has a marked ascites. Her MCV is high. I do not see any imaging study neurologically in this patient. She has been getting multivitamin when she is here. IMPRESSION AND PLAN: This patient gives a history suggestive of neuropathy on EMG. I do not have any results of that to make any impression. Neuropathy is expected with alcohol in this patient. That workup needs to be done as an outpatient. I talked to the patient. She indicated that her biggest concern is her ascites and that is where she would like us to concentrate on. She indicates that she would like to get the question of neuropathy addressed as an outpatient and I think that is very reasonable thing to do in this patient and concentrate on her acute problem. I did send a vitamin B12 and immunofixation electrophoresis, LEANNE and sed rate to complete the workup and you can check on that. If the EMG was done by a neurologist, I will suggest following up with the same neurologist because EMG is somewhat of a subjective procedure and she does not need to get that again. I discussed all of it with the patient and she is agreeable with that and that is what she would like to do. Please call us if there are any other questions, otherwise we will sign off. <ELECTRONICALLY SIGNED> By: Manuelito Zaidi MD 05/23/18 0954 [id number] 15 Manuelito Zaidi MD /nt
== END 2018-05-19 18:36 | disposition home or self-care (01) | DRG 432 ==
LOC: ER 19:21 → EROBS 20:50 → 4W 20:50
PROVIDERS: Emergency Medicine; Hospitalist; Internal Medicine; Internal Medicine Gastroenterology; Nurse Practitioner; Nurse Practitioner Acute Care; Psychiatry & Neurology Neuromuscular Medicine; ADMIT Internal Medicine
PROC: 0W9G3ZZ Drainage of Peritoneal Cavity, Percutaneous Approach (ICD-10-PCS; principal; 2018-05-05)
PROC: 0W9G3ZZ Drainage of Peritoneal Cavity, Percutaneous Approach (ICD-10-PCS; 2018-05-09)
PROC: 0W9G3ZZ Drainage of Peritoneal Cavity, Percutaneous Approach (ICD-10-PCS; 2018-05-12)
PROC: 0W9G3ZZ Drainage of Peritoneal Cavity, Percutaneous Approach (ICD-10-PCS; 2018-05-16)
DX: K70.11 Alcoholic hepatitis with ascites (principal); G92 Toxic encephalopathy; E43 Unspecified severe protein-calorie malnutrition; E87.1 Hypo-osmolality and hyponatremia; G43.909 Migraine, unspecified, not intractable, without status migrainosus; G47.00 Insomnia, unspecified; F31.9 Bipolar disorder, unspecified; F41.9 Anxiety disorder, unspecified; K70.31 Alcoholic cirrhosis of liver with ascites; F43.10 Post-traumatic stress disorder, unspecified; E87.6 Hypokalemia; G89.4 Chronic pain syndrome; D63.8 Anemia in other chronic diseases classified elsewhere; F42.9 Obsessive-compulsive disorder, unspecified; D72.829 Elevated white blood cell count, unspecified; Z87.891 Personal history of nicotine dependence; Z87.442 Personal history of urinary calculi; Z80.9 Family history of malignant neoplasm, unspecified; Z87.11 Personal history of peptic ulcer disease; Z68.23 Body mass index [BMI] 23.0-23.9, adult; X58.XXXA Exposure to other specified factors, initial encounter; Y93.89 Activity, other specified; Y92.89 Other specified places as the place of occurrence of the external cause; Y99.8 Other external cause status
CPT/HCPCS: 10045

== ENCOUNTER 2018-05-21 09:22 | Inpatient (IN) | payer OTHER ==
[~2018-05-21] VITALS: Ht 172.7 cm; Wt 58.6 kg
--- NOTE | ~2018-05-21 | HC ---
[facility] [place] [address] CONSULTATION Name: MAUREEN GUERRERO Room #: 213-P [facility] IN M.R.#: [id number] Admission: 05/21/18 ������������������ Attend Phys: Shan Mata MD Discharge: ������������������ Date of : 82 Report #: [id number] THIS REPORT FOR: //name// CC: Shan Mata [facility] physician/PCP AMANDA MOSLEY DATE OF SERVICE: 05/29/2018 IDENTIFICATION: Psychiatric consultation is requested for alcohol dependence. HISTORY OF PRESENT ILLNESS: The patient is a 37-year-old female known to our service from recent consultations during her last hospital stay when she was just discharged about a week prior to readmission. She has a history of alcohol dependence, complicated by end-stage liver disease. She also reports a past history of bipolar disorder and posttraumatic stress disorder. During her last hospital stay, she was started on sertraline, gabapentin and prazosin. She is somewhat unclear whether she continued these medications upon discharge. She did relapse on alcohol on 05/20/2017 and was subsequently readmitted to hospital. On interview today, the patient complains of nightmares, insomnia, anxiety, pain and nausea. ALLERGIES: Reviewed, available in the chart. MEDICATIONS: Reviewed include Ativan 1 mg IV every 4 hours as needed. She is not currently on the sertraline, prazosin or gabapentin. PAST MEDICAL HISTORY: Alcoholic hepatitis, end-stage liver disease, status post paracentesis, chronic pain syndrome, hyponatremia. FAMILY HISTORY: Mother by suicide. SOCIAL HISTORY: The patient lives independently, does not smoke cigarettes. Alcohol use as noted above. MENTAL STATUS EXAMINATION: Thin female, polite and cooperative, fair eye contact, mumbling speech. Thought process tangential. No hallucinations or delusions. No suicidal or homicidal ideation. Affect blunted, dysthymic. Poor attention and poor concentration, mild impairment of memory noted. Alert and oriented to person, place and situation. Insight fair. Judgment fair. DIAGNOSES: Delirium, alcohol dependence, posttraumatic stress disorder, bipolar disorder. [facility] [address] [place] [address] CONSULTATION Name: MAUREEN GUERRERO Room #: 213-[facility] IN ..#: [id number] Admission: 05/21/18 ������������������ Attend Phys: Shan Mata MD Discharge: ������������������ Date of : 82 Report #: [id number] PLAN: The patient demonstrates mild delirium on exam. We will therefore discontinue the IV Ativan in favor of oral Ativan and lower the dose to 0.5 mg. Goal will be to taper her off of benzodiazepines prior to discharge. We will resume the sertraline, prazosin and gabapentin, which were started at her last visit. I agree with providing patient with chemical dependency resources. Thank you for this consultation. We will follow up as needed. Please contact us with any urgent questions or concerns. ��������������������������������������������� ���������������������������������������� By: ��������������������������������������������� 0827 14 Deisy Cannon MD /nt
--- NOTE | ~2018-05-21 | HC ---
[facility] [place] [address] CONSULTATION Name: MAUREEN GUERRERO Room #: 213-P ADM IN M.R.#: [id number] Admission: 05/21/18 ������������������ Attend Phys: Shan Mata MD Discharge: ������������������ Date of : 82 Report #: [id number] THIS REPORT FOR: //name// CC: Shan Mata [facility] physician/PCP AMANDA MOSLEY DATE OF SERVICE: 05/24/2018 REQUESTING PHYSICIAN: Dr. Mata. CHIEF COMPLAINT: Palliative care for liver cirrhosis. HISTORY OF PRESENT ILLNESS: The patient is a 37-year-old female who presented again to [facility] on 05/21/2018. She has a history of alcohol-related cirrhosis. Unfortunately, she has secondary ascites that has been significantly difficult to manage. After leaving the hospital, also unfortunately she was not able to abstain from alcohol use. She was interested in talking to myself about hospice care services today, which is the reason for consultation. Of note, I have reviewed her inpatient reports and I appreciate the consultations from Gastroenterology, have reviewed her MELD sodium score of 28. She has recently had 3.9 liters taken off and was planning to have again another round of paracentesis tomorrow. She did have abdominal sonic ultrasound showing hepatic veins patent and portal vein and splenic vein were also patent. She has a significant history of PTSD and multiple trauma in the past contributing to this overall condition. Certainly, at this point in time, the patient had concern about her overall state going forward. She appears to understand that her medical condition is extremely tenuous. Of note, she has recently been started on lactulose and Xifaxan and appears to have some aspects of hepatic encephalopathy currently. She denies current discomfort, although when asked, she does admit that it is uncomfortable to have the amount of ascites that she does have at this time. PAST MEDICAL HISTORY: Significant for PTSD, depression. She has a history of cirrhosis secondary to alcohol use and alcoholic hepatitis, also chronic hyponatremia. SOCIAL HISTORY: She has two children per report and she has a significant other who could apparently be available for meeting tomorrow. She reports that she desires to be a full code at this time. Again, significant past alcohol use history. FAMILY HISTORY: Noncontributory to current condition. SURGICAL HISTORY: Again, repeat multiple paracentesis. [facility] [address] [place] [address] CONSULTATION Name: MAUREEN GUERRERO Room #: 213 ADM IN M.R.#: [id number] Admission: 05/21/18 ������������������ Attend Phys: Shan Mata MD Discharge: ������������������ Date of : 82 Report #: [id number] ALLERGIES: No known drug allergies. MEDICATIONS: Inpatient medications were reviewed and consist of Aldactone, rifaximin, lactulose, Lasix, Ativan, Rocephin, fentanyl, Zofran. REVIEW OF SYSTEMS: GENERAL: Denies any fevers or chills. She does have some weight gain related to fluid buildup. HEENT: She denies any visual changes. CARDIOVASCULAR: Denies chest pain, palpitations. RESPIRATORY: Does report occasional shortness of breath related to her abdominal swelling. PHYSICAL EXAMINATION: VITAL SIGNS: At the day of my exam, temperature 36.9, pulse 132, respirations 20, blood pressure 89/52, pulse oximetry 93% on room air. GENERAL: She is alert, but does have difficulty with attention level at this current time. CARDIOVASCULAR: Tachycardic, but regular rhythm. RESPIRATORY: Shallow breaths, but clear to auscultation. ABDOMEN: Diffuse tenderness and also diffuse distention. LABORATORY DATA: Included hemoglobin 11.5, white blood cells 13.8, platelets 278. Sodium 125, creatinine 0.8, AST 716, ALT 120, alkaline phosphatase 126, total bilirubin 6.2. INR 1.9. ASSESSMENT AND PLAN: Cirrhosis related to alcohol use. At this current point in time, the patient is desiring to speak about hospice care services. I explained to her what those might entail including hospice at home, including inpatient hospice, which she would likely qualify for due to her need for recurrent paracentesis. I did discuss the possibility, although we would not wanting this in past or a pigtail catheter for continued paracentesis, certainly that would increase her risk of peritonitis. However, in the event that we are pursuing hospice that may be appropriate step for the patient, certainly we would be focusing on relieving symptoms. Currently, she appears to be stable with regards to that. I did discussed extensively what hospice would entail, did discuss that in general, people with hospice care do not pursue full code status, did discuss what code status is and the percentages with regards to it including in relation to her current condition. She continued to desire to be full code at this time, although did want to speak with hospice care provider. I have told the immigration case manager and they will try to arrange for hospice care provider meeting tomorrow at which time she may pursue whether inpatient or outpatient hospice. Certainly, she is a candidate given her overall condition and given the difficulty that she has had with abstaining from alcohol, certainly we would pursue abstinence for alcohol if at all possible for future management of her condition. At this point in time, I am happy to assist [facility] [address] [place] [address] CONSULTATION Name: MAUREEN GUERRERO Room #: 213-P ADM IN M.R.#: [id number] Admission: 05/21/18 ������������������ Attend Phys: Shan Mata MD Discharge: ������������������ Date of : 82 Report #: [id number] further. Please contact me at any point if I can be of further assistance. I have given her my contact information as well. Thank you very much for the consultation. ��������������������������������������������� ���������������������������������������� By: ��������������������������������������������� 1001 Jon Nathan DO /nt
[~2018-05-21 09:22] MED LIST changes: +GABAPENTIN 100100 MG PO; +LASIX 40 MG TAB40 M2 PO; +OXYCODONE HCL10 MG PO; +PEPCID20 MG PO; +PRAZOSIN HCL1 MG PO; +SPIRONOLACTONE100 M1 PO; +ZOLOFT 50 MG TA50 M1 PO
[2018-05-21 09:26] VITALS: BP 89/45
[2018-05-21 09:57] LABS: HEMATOCRIT 34.9 % (37.0-47.0); HEMOGLOBIN 11.9 gm/dL (12.0-15.0); MCH 33.6 pg (26.0-34.0); MCHC 34.2 g/dL (28.0-37.0); MCV 98.5 fL (80.0-100.0); RBC 3.55 mil/uL (4.20-5.00); RDW 12.7 % (10.5-14.5)
[2018-05-21 10:00] LABS: CALCIUM 8.1 mg/dL (8.5-10.1); CREATININE 0.7 mg/dL (0.6-1.0); POTASSIUM 4.3 mmol/L (3.5-5.1)
[2018-05-21 10:06] LABS: ALBUMIN 1.6 g/dL (3.4-5.0); TOTAL BILIRUBIN 6.7 mg/dL (<0.1-1.0); TOTAL PROTEIN 6.3 g/dL (6.4-8.2)
[2018-05-21 10:58] LABS: URINE BILIRUBIN 2+ (Negative); URINE BLOOD NEGATIVE (Negative); URINE CLARITY CLEAR; URINE COLOR YELLOW; URINE GLUCOSE-RANDOM* NEGATIVE (Negative); URINE KETONES NEGATIVE (Negative); URINE LEUKOCYTES-REFLEX NEGATIVE (Negative); URINE NITRITE-REFLEX NEGATIVE (Negative); URINE PROTEIN (DIPSTICK) NEGATIVE (Negative); URINE SPECIFIC GRAVITY 1.025 (1.005-1.035)
[2018-05-21 11:00] LABS: ICTOTEST (BILI CONFIRMATORY) Positive (Negative)
[2018-05-21 13:11] VITALS: BP 110/59
[2018-05-21 13:40] VITALS: BP 97/60
[2018-05-21 14:00] VITALS: BP 97/60
--- NOTE | 2018-05-21 18:23 | NUR ---
PATIENT ADMITTED TO ROOM AND ORIENTED TO CALL LIGHT, BATHROOM ROUTINE, SCDS ETC. SHE DID VOICED UNDERSTANDING. SHE PRESENT WITH DISTENDED ABDOMEN DUE TO ESLD WITH ASCITES. ABDOMEN IS QUITE FIRM. GI CONSULT NOTED. CT SCAN ORDERED BY DR BARNETT. PAIN MEDICATION CHANGE AND SEEMS FENTANYL IS EFFECTIVE IN CONTROLLING PAIN. EYES/SKIN ARE JAUNDICED. HE IS ALERT ORIENTED X4. WILL CONT WITH PLAN OF CARE.
[2018-05-21 20:32] VITALS: BP 111/70
[2018-05-21 23:28] VITALS: BP 110/75
[2018-05-22 04:20] VITALS: BP 124/92
[2018-05-22 06:16] LABS: HEMATOCRIT 36.7 % (37.0-47.0); MCHC 32.5 g/dL (28.0-37.0); MCV 98.3 fL (80.0-100.0); RBC 3.74 mil/uL (4.20-5.00); RDW 12.8 % (10.5-14.5); WBC 18.9 thou/uL (4.0-11.0)
[2018-05-22 06:34] LABS: CALCIUM 8.2 mg/dL (8.5-10.1); CREATININE 0.7 mg/dL (0.6-1.0); POTASSIUM 3.8 mmol/L (3.5-5.1)
--- NOTE | 2018-05-22 07:23 | NUR ---
ASSUMED CARE OF PT AT 1900. A&Ox4, COOPERATIVE. SR-ST ON TELE, HR 130-150 WHEN UP TO BR SEVERAL TIMES. FLUIDS INFUSION ORDERED. ABD VERY DISTENDED AND HARD. C/O PAIN, 50 MCG FENTANYL GIVEN Q 2 HOURS. PT ASKED FOR MORE PAIN MEDS AN HOUR TO 1 1/2 HRS AFTER HAVING IT LAST RATING PAIN 9-10/10. STATED SHE IS HAVING A LITTLE SOA. WAS 93-94% O2 SATURATION. PT STATED SHE WOULD LIKE TO TRY O2, 1L VIA NC, PLACED. O2 SAT WAS 100% ON NEXT CHECK. DID EAT AT 2200. NPO SINCE MIDNIGHT. SLOW PROGRESSION TOWARDS POC GOALS.
[2018-05-22 08:45] VITALS: BP 115/77
[2018-05-22 13:19] LABS: CLARITY SL CLOUDY; COLOR YELLOW; SOURCE ASCITES; TOTAL VOLUME 60 mL
[2018-05-22 13:20] LABS: SOURCE ASCITES
[2018-05-22 13:31] LABS: BF NUCLEATED CELLS 84; BF RBC 179
[2018-05-22 15:19] LABS: BF MACROPHAGE 31; BF NEUTROPHILS 38
[2018-05-22 16:15] VITALS: BP 97/58
--- NOTE | 2018-05-22 18:07 | NUR ---
PT CARE ASSUMED APPROX 1145. PT ALERT AND ORIENTED X4. DENIES SOA. C/O ABD PAIN 7-12/20 INTERMITTENTLY. MANAGING PAIN WITH FENT. HEART RATE ELEVATED. PT ANXIOUS AND AGITATED. MANAGING POSSIBLE ETOH WITHDRAWL SYMPTOMS WITH ATIVAN. VS OTHERWISE STABLE. DR VÁSQUEZ NOTIFIED TWICE THAT CURRENT MEDS WERE NOT CONTROLLING HR. ANXIETY IS MUCH IMPROVED AT THIS TIME. IVF RATE INCREASED FOR POSSIBLE DEHYDRATION TO HELP WITH HR. WILL MONITOR. DIET ADVANCED AND PT TOLERATING. PT REPORTS BURNING WHEN PUSHING MEDS THROUGH IV. IVF RUNNING AND PIV FLUSHES EASILY. NO S/S OF IV INFILTRATION. PT REFUSES PIV CHANGE AT THIS TIME. NO DISTRESS NOTED.
[2018-05-22 20:00] VITALS: BP 128/74
[2018-05-23 03:47] LABS: CREATININE 0.8 mg/dL (0.6-1.0); POTASSIUM 3.9 mmol/L (3.5-5.1)
[2018-05-23 04:15] LABS: ABSOLUTE NEUTROPHILS 11.4 thou/uL (1.4-8.2); EOSINOPHILS 0.1 % (0.0-3.0); HEMATOCRIT 34.7 % (37.0-47.0); HEMOGLOBIN 11.5 gm/dL (12.0-15.0); LYMPHOCYTES 8.4 % (24.0-44.0); MCH 33.4 pg (26.0-34.0); MCHC 33.2 g/dL (28.0-37.0); MCV 100.5 fL (80.0-100.0); MONOCYTES 8.1 % (1.0-8.0); POLYS 82.4 % (36.0-66.0); RBC 3.45 mil/uL (4.20-5.00); RDW 13.1 % (10.5-14.5); WBC 13.8 thou/uL (4.0-11.0)
[2018-05-23 04:18] VITALS: BP 118/66
[2018-05-23 04:30] LABS: PLATELET COUNT 278 thou/uL (150-400)
--- NOTE | 2018-05-23 04:55 | NUR ---
AOX4. COMPLAINT CONSTANT PRESSURE PAIN ON THE ABDOMEN NOTED. PRN FENTANYL GIVEN NEEDED. DISTENDED ABDOMEN NOTED. (+) BS. SINUS TACHY ON THE MONITOR. LUNG SOUNDS DIMINISHED, ON ROOM AIR. RIGHT FA IV FLUSHES WELL, NO REDNESS, NO SWELLING, DENIES PAIN ON THE IV SITE, IV INTACT, WITH ONGOING NSS AT 100 ML/HOUR. FF UP POC.
[2018-05-23 07:53] VITALS: BP 106/67
[2018-05-23 09:10] LABS: BODY FLUID ALBUMIN 0.5 g/dL (()); BODY FLUID GLUCOSE 105 mg/dL (()); BODY FLUID LDH 55 IU/L (()); BODY FLUID PROTEIN 1.4 g/dL (())
[2018-05-23 11:46] LABS: INR 1.9; PROTIME 19.5 Seconds (9.3-11.4)
[2018-05-23 11:55] LABS: ALBUMIN 1.3 g/dL (3.4-5.0); TOTAL BILIRUBIN 6.2 mg/dL (<0.1-1.0); TOTAL PROTEIN 4.8 g/dL (6.4-8.2)
[2018-05-23 12:08] VITALS: BP 105/71
--- NOTE | 2018-05-23 18:21 | NUR ---
PT CARE ASSUMED APPROX 0700. PT ALERT AND ORIENTED X4. DENIES SOA. C/O PAIN TO ABD CONSTANTLY. FENT USED TO MANAGE PAIN. ATIVAN USED TO MANAGE POSSIBLE ETOH WITHDRAWL SYMPTOMS. HR REMAINS ELEVATED AND DRS AWARE. IVF RUNNING. ATIVAN BEING GIVEN Q4 OFTEN ORDERED. LACTULOSE GIVEN AND PT HAVING ACCIDENTS. SHE REPORTS THAT THE BED ACCIDENTS ARE NOT FROM WAITING BECAUSE I WAS IN THE ROOM AND SHE STILL DIDN'T MAKE. IT. ENCOURAGED TO CONTINUE TO CALL FOR ASSIST. BSC AT BEDSIDE. PT HAS LOW GRADE TEMPS TODAY. BESIDE TEMP AND HR VS OTHERWISE STABLE. FLUID RESTRICTION ADDED TO PT POC AND DIET CHANGED. PT EDUCATED. UNSTEADY ON FEET. NO DISTRESS NOTED.
[2018-05-23 19:34] VITALS: BP 99/64
--- NOTE | 2018-05-24 04:15 | NUR ---
ASSESSMENT DOCUMENTED. AOX4. DISTENDED ABDOMEN. STILL WITH CONSTANT "PRESSURE PAIN" ON THE ABDOMEN, WITH SCORE OF 7-8/10, PRN MEDS GIVEN. TREMORS STILL NOTED. ATIVAN GIVEN NEEDED. BM NOTED. INSTRUCTED TO CALL FOR ASSISTANCE. FF UP POC.
[2018-05-24 05:15] VITALS: BP 99/64
[2018-05-24 08:00] VITALS: BP 108/62
[2018-05-24 09:25] LABS: HEMATOCRIT 39.1 % (37.0-47.0); HEMOGLOBIN 12.8 gm/dL (12.0-15.0); MCH 32.6 pg (26.0-34.0); MCHC 32.8 g/dL (28.0-37.0); MCV 99.4 fL (80.0-100.0); RBC 3.94 mil/uL (4.20-5.00); RDW 12.9 % (10.5-14.5); WBC 14.1 thou/uL (4.0-11.0)
[2018-05-24 09:37] LABS: INR 1.9; PROTIME 19.9 Seconds (9.3-11.4)
[2018-05-24 09:41] LABS: ALBUMIN 1.5 g/dL (3.4-5.0); CALCIUM 7.6 mg/dL (8.5-10.1); CREATININE 0.9 mg/dL (0.6-1.0); DIRECT BILIRUBIN 5.1 mg/dL (<0.1-0.3); POTASSIUM 3.2 mmol/L (3.5-5.1); TOTAL BILIRUBIN 5.9 mg/dL (<0.1-1.0); TOTAL PROTEIN 5.7 g/dL (6.4-8.2)
--- NOTE | 2018-05-24 09:54 | NUR ---
Met with patient who was drowsy/groggy. She has recent 15 day stay, dc on 05/19 with scheduled paracenthsis 05/21. Patient readmits 05/21. She has hx of ETOH liver disease. Patient tells me it is stage 3 and not much more "they can do." She mentioned hospice to casemgr. reviewed hospice services. Patient questioned if she went to hospice house would they "kick her out if she got better." Discussed at times if patient no longer meeting house criteria they assist with dc planning. Patient open to rec brochures and initially open to having hospice meet with her to discuss their services. When asked regarding calling her , she reports to call him tomorrow he is meeting with her father.
[2018-05-24 12:00] VITALS: BP 116/81
--- NOTE | 2018-05-24 12:08 | NUR ---
ASSESSMENTS COMPLETED AND DOCUMENTED. NO S/SX OF CARDIAC OR RESP DISTRESS. ABD DISTENDED AND SOFT. PRN ATIVAN AND PAIN MED GIVEN. PER DOC CONSULTED DR. GOTTI. WILL CONTINUE TO MONITOR PER ORDERS.
[2018-05-24 16:00] VITALS: BP 89/52
[2018-05-24 19:41] VITALS: BP 100/63
--- NOTE | 2018-05-24 20:01 | NUR ---
ASSUMED CARE OF PT AT APPROX 1400. ASSESSMENT CHARTED. MEDS GIVEN PER JUN. PT ALERT AND ORIENTED, ANXIOUS. C/O ABDOMINAL PAIN, MANAGED WITH IV PAIN MEDS. ANXIETY MANAGED WITH IV ATIVAN. VSS, PT TACHY ON MONITOR. ABDOMEN PROTRUDED, GI VISITED PT, POSSIBLE PARACENTESIS TOMORROW. PT UP TO COMMODE X1 ASSIST. NO C/O NAUSEA/VOMITING. DR. GOTTI VISITED WITH PT REGARDING HOSPICE, DR GOTTI STATED TO THIS NURSE THAT WILL TRY AND TALK TO PT AGAIN IN AM WITH SPOUSE PRESENT. NO FURTHER NEEDS AT THIS TIME. WILL CONTINUE TO MONITOR AND FOLLOW POC.
--- NOTE | 2018-05-25 00:31 | NUR ---
RECEIVED PATIENT SLEEPING. EASILY AWAKEN. AOX4, COMPLAINT OF CONSTANT PRESSURE ABDOMINAL PAIN, MANAGED WITH FENTANYL IV PRN. STILL WITH TREMORS AND ANXIETY, MANGED WITH ATIVAN. ON ROOM AIR, LUNG SOUNDS CLEAR, DIMINISHED ON THE BASES. NON PRODUCTIVE COUGH NOTED. ABDOMEN DISTENDED. BM NOTED. IV ON THE RIGHT HAND AND RIGHT FOREARM INTACT AND FLUSHES WELL. LONG THIN STRAIGHT SCRATCH NOTED ON THE LEFT SIDE OF THE BACK. I ASKED THE PATIENT IF SHE SCRATCHED IT AND SHE SAID NO. PATIENT TOLD ME THAT SHE FELL "YESTERDAY MORNING" (THAT WAS MAY 23). SHE SAID THAT SHE WENT TO THE COMMODE AND WAS GOING BACK TO THE BED WHEN SHE "TWIRL AND GOT CAUGHT BY SOMETHING AND FELL AND SCRATCHED HER BACK WITH SOMETHING". SHE SAID SHE "TOLD A LADY ABOUT IT AND WAS ASKED HOW SHE WAS ABLE TO GET BACK TO THE BED". I ASSESSED THE PATIENT FOR ANY OTHER PAIN AND SHE DENIES. FALL PRECAUTION IMPLEMENTED. CHARGE NURSE DAVID INFORMED OF THE EVENT AFTER THE FACT. CIGARETTE PACKAGE EXAMINER NANDO WAS INFORMED BY MS HERNANDEZ.
--- NOTE | 2018-05-25 00:53 | NUR ---
23:16>CALLED ANSWERING SERVICE OF [facility]. 23:24DR JUANITO CALLED BACK. I CLARIFIED HIS ORDER ABOUT THE SPIRONOLACTONE. HE SAID THAT HE ORDERED A ONE TIME DOSE OF SPIRONOLACTONE 100 MG TO MAKE A TOTAL OF 200 MG TONIGHT AND THAT HE INCREASED THE DOSAGE. INFORMED ROSE OF PHARMACY.
[2018-05-25 04:37] VITALS: BP 103/67
[2018-05-25 07:50] VITALS: BP 102/73
--- NOTE | 2018-05-25 11:59 | NUR ---
FAXED REFERRAL TO HOSPICE HOUSE SPOKE WITH SOFIE IN ADM. AND SHE RECEIVED REFERRAL AND THEY WILL BE OUT TO DO BEDSIDE EVAL AT [phone] TODAY. DCP TO FOLLOW.
--- NOTE | 2018-05-25 12:13 | NUR ---
VASCULAR ACCESS ASSESSED PT, SHE HAS HAD MULTIPLE PIV'S. DISCUSSED BENEFITS OF MIDLINE WITH PT, VERBALIZED CONSENT. PT WAS PREPPED AND DRAPED FOR MAX BARRIER PRECAUTIONS. CHET BASILIC WAS WIDELY PATENT WITH USG, 1% LIDOCAINE GIVEN SQ. 4FR POWER MIDLINE TRIMMED TO 12CM INSERTED TO 0CM WITH BRISK BR. ML SECURED AND RELEASED FOR IMMEDIATE USE PER PROTOCOL TO TUAN BACA
--- NOTE | 2018-05-25 12:16 | NUR ---
Dr Nathan met with patient last evening. He reports patient interested in speaking with hospice. She still desires full code. He questioned a pig tail cath for draining. Sp with patient and her father is at bedside. He reports when patient in [place] 10 years ago phys told her to quit drinkin she was es liver at that time. father reports he is aware of hospice services. He reports he has friend who works in hospice and he is aware of services. He feels this situation has been coming for a long time. He reports he hopes for hospice house. Her s/o is not her , they have been together approx 3 years. There are 3 children in home and father reports not good to be in home setting with hospice care. Hospice to eval between [id number], father and patient aware. patient agreeable to hospice eval but she is "foggy" with her thinking. Dr Santiago from GI reports they would not place a pigtail due to infection. Patients need to return for parathcenthsis on outpatient basis. Patients grandmother and sister are coming from out of town to see patient. will be here at 1600. Father reports sisters are estranged due to ETOH. Await Hospice eval. patient cont as full code
[2018-05-25 12:22] VITALS: BP 105/67
[2018-05-25 15:48] VITALS: BP 97/62
--- NOTE | 2018-05-25 16:14 | NUR ---
Hospice evaled today. Jing from Hospice visited with patient, father and s/o Lex. Hospice reviewed services. At this time no plans for drain at this time. Patient a candidate for Hospice house. Reviewed care without a drain at home and at home. S/O cont to encourage patient to abstain from ETOH and possible cont aggressive tx. Father is preparing for end of life care. Outside DNR not signed by patient at this time. Updated Augie BACA practioner for GI. Updated Dr Nathan. Cont of discussion from phys of POC with patient and family. Family wants to discuss options with GI. Hospice can visit again in am.
--- NOTE | 2018-05-25 16:54 | NUR ---
ASSUMED CARE OF PT AT SHIFT CHANGE. ASSESSMENTS CHARTED. MEDS GIVEN PER JUN. PT ALERT AND ORIENTED, ANXIOUS AT TIMES. VSS, FAMILY AT BEDSIDE THROUGHOUT DAY. PT C/O PAIN, MANAGED WITH IV PAIN MEDS. ANXIETY MANAGED WITH IV ATIVAN. DENIES CHEST PAIN. ST ON MONITOR, O2 SATS WNL ON ROOM AIR, NO S/SX OF CARDIAC OR RESP DISTRESS NOTED. SW AND HOSPICE NURSE SPOKE WITH PT AND PT FAMILY REGARDING POTENTIAL HOSPICE, GI SPOKE WITH PT AND FAMILY WELL, REFER TO NOTES. NO FURTHER NEEDS AT THIS TIME. WILL CONTINUE TO MONITOR AND FOLLOW POC.
[2018-05-25 19:24] VITALS: BP 112/64
[2018-05-26 03:49] VITALS: BP 94/60
[2018-05-26 05:01] LABS: CALCIUM 7.3 mg/dL (8.5-10.1); CREATININE 0.8 mg/dL (0.6-1.0)
[2018-05-26 05:07] LABS: HEMOGLOBIN 11.4 gm/dL (12.0-15.0); MCH 32.8 pg (26.0-34.0); MCHC 33.5 g/dL (28.0-37.0); MCV 97.8 fL (80.0-100.0); RBC 3.48 mil/uL (4.20-5.00); RDW 12.9 % (10.5-14.5); WBC 6.6 thou/uL (4.0-11.0)
--- NOTE | 2018-05-26 06:18 | NUR ---
pt resting quietly in room, calls out for prn meds, and for assist up to br, plan paracentesis for this am, abdomen remain extended, vss, con't to monitor per ppoc.
[2018-05-26 09:10] LABS: INR 1.6; PROTIME 17.1 Seconds (9.3-11.4)
--- NOTE | 2018-05-26 12:22 | NUR ---
Hospice liason updated in that the pt and family do not wish to pursue hospice at this time. GI reviewed options and outcomes with them again yesterday at bedside. Pt and family wishing to continue aggressive tx. Pt getting tapped today and would likely need this weekly as an outpt, which GI can arrange. They have recommended that pt/family make an appt with [facility] if she wishes to pursue treatment options including consideration for transplant. GI educated them on the process and expectations to make that successful. Cement Crusher Operator requested Hospice to reveiw case to see if they can offer palliative home health f/u at dc as this may be a good support for the pt. They are reviewing her case. HH and outpt f/u with [facility] Liver program appear most appropriate dc plan at this time. Will follow.
--- NOTE | 2018-05-26 12:31 | NUR ---
FAXED REFERRAL TO HOSPICE FOR PALLIATIVE HH. SPOKE WITH LEODAN IN ADM. AND SHE RECEIVED REFERRAL AND WILL REVIEW. DCP TO FOLLOW.
[2018-05-26 12:38] VITALS: BP 99/65
[2018-05-26 17:25] VITALS: BP 92/54
--- NOTE | 2018-05-26 18:27 | NUR ---
PT CARE ASSUMED APPROX 0700. PT DROWSY BUT ORIENTED X4. DENIES SOA. C/O ABD PAIN. PAIN MANAGED WITH FENT AND HYDRCODONE. ATIVAN MANAGING POSSBLE WITHDRAW SYMPTOMS. VSS. PARACENTESIS COMPLETED WITHOUT ISSUE. PT UP WITH MIN ASSIST. LOOSE STOOLS. POOR APPETITE. PT GETTING MIDLY CONFUSED THIS EVENING. DR VÁSQUEZ AGREES TO GIVING ATIVAN AND FENT LESS OFTEN. NO DISTRESS NOTED.
[2018-05-26 19:29] VITALS: BP 91/57
[2018-05-27] VITALS (15 sets, daily range): BP systolic 87–114; BP diastolic 59–75
--- NOTE | 2018-05-27 02:51 | NUR ---
ASSUMED CARE OF PATIENT AROUND 1900. PATIENT DROWSY AND UNABLE TO STAY AWAKE DURING ASSESSMENT. CIWA OF 16 AT 1999 ASSESSMENT. PATIENT TOO DROWSY/LETHARGIC TO ADMINISTER ATIVAN, PAIN MEDICATIONS, AND PO MEDICATIONS. ENDODONTICS DENTIST [place] CONTACTED AND UPDATED WITH PATIENT STATUS, CAME TO ASSESS PATIENT. HYDROXYZINE ORDERED FOR PATIENT. PILL GIVEN AFTER EXTENDED PERIOD OF TIME SPEND WAKING PATIENT UP AND ADMINISTERING BEDSIDE SWALLOW EVAL. PATIENT ABLE TO TAKE PILL AFTER ABOUT 10 MINUTES. PATIENT BACK TO SLEEP ALMOST IMMEDIATELY. UPON 0000 ASSESSMENT, CIWA 19. ENDODONTICS DENTIST CONTACTED. DISCUSSED PATIENT PROGRESSION WITHOUT TREATING CIWA SCORES VS ADMINISTRATION OF ATIVAN AND POSSIBILITY OF PATIENT LOSING RESPIRATORY DRIVE. AUDIT CONTROL CLERK CONTACTED TO SEE IF ICU TRANSFER COULD BE MADE AT THIS TIME. PATIENT ABLE TO BE MOVED, WILL MOVE TO ROOM 245 WHEN CLEAN. PATIENT IS NOT PROGRESSING TOWARD GOALS, WILL GIVE REPORT TO DANILO BACA IN ICU.
--- NOTE | 2018-05-27 06:04 | NUR ---
PATIENT IS ALERT TO SELF AND SITUATION. PATIENT IS ON 2LNC. PATIENT LAST CIWA WAS 17. PATIENT USES BED JOHNSON. PATIENT IS DIFFICULT TO GET UP DUE TO WEAKNESS AND DIFFICULTLEY FOLLOWING DIRECTIONS. PATIENT CO PAIN TO ABD. PATIENT HAS ASCITIES IN ABD. PATIENT RECEIVED PARACENTHESIS THE . PAITENT IS CONTIENT. PATIENT IS RESTING COMFORTABLEY IN BED. WCM. PATIENT IS NOT PROGRESSING TO GOALS
[2018-05-27 06:18] LABS: INR 1.5; PROTIME 15.4 Seconds (9.3-11.4)
[2018-05-27 06:23] LABS: ALBUMIN 1.2 g/dL (3.4-5.0); CALCIUM 7.3 mg/dL (8.5-10.1); CREATININE 0.6 mg/dL (0.6-1.0); POTASSIUM 3.9 mmol/L (3.5-5.1); TOTAL BILIRUBIN 3.5 mg/dL (<0.1-1.0); TOTAL PROTEIN 4.6 g/dL (6.4-8.2)
--- NOTE | 2018-05-27 06:51 | NUR ---
PRESSURES SOFTER 80S/40S. PROVIDER NOTIFIED. BOLUS GIVEN. ABD MORE DISTENTED AND HARD. PATIENT REPORTS INCREASE PRESSURE IN ABD. WCM. PATIENT VOIDS PER BED JOHNSON.
--- NOTE | 2018-05-27 10:10 | HC ---
[facility] [place] [address] CONSULTATION Name: MAUREEN GUERRERO Room #: [facility] ADM IN M.R.#: [id number] Admission: 05/21/18 ������������������ Attend Phys: Shan Maat MD Discharge: ������������������ Date of : 84 Report #: [id number] THIS REPORT FOR: //name// CC: Shan Mata [facility] physician/PCP AMANDA MOSLEY TYPE OF REPORT: GI consultation. SUBJECTIVE: The patient is a 37-year-old female I have been asked to see for acute abdominal pain and distention. Apparently, she has a long history of alcohol abuse and presents with recurrent ascites. She had many paracentesis in the past, the details of her workup are not available to me. She has a daily alcohol habit of approximately one fifth of vodka per day and has so for a couple of years. Her longest extended sobriety has been 1 year per her history. PAST MEDICAL HISTORY: Her medical history is otherwise notable for alcoholic liver disease, anxiety, PTSD, migraines, bipolar affective disorder, nephrolithiasis, concussions and insomnia. FAMILY HISTORY: Negative for inflammatory bowel disease or colon cancer or liver disease. She denies alcohol or drug use. She is a former smoker. REVIEW OF SYSTEMS: Positive for weight gain. She denies head, eyes, ears, nose or throat complaints. She denies chest pain, chest palpitation, chest pressure, cough, shortness of breath, wheezing, genitourinary, musculoskeletal or neuropsychiatric complaints beyond that mentioned above. PHYSICAL EXAMINATION: GENERAL: The patient is afebrile. VITAL SIGNS: Stable. HEENT: Icteric. NECK: No JVD, thyromegaly or bruits. CARDIOVASCULAR: Tachycardic. LUNGS: Clear. ABDOMEN: Tense with peritoneal signs, rebound or guarding. EXTREMITIES: Without edema. NEUROLOGICAL: Not performed. RECTAL: Not performed. LABORATORY DATA: Pertinent labs include hemoglobin 11.9, white count 17.0 and platelet count 246. Serum chemistry notable for sodium 118 up to 124, potassium 4.3 and chloride 85. Calcium 8.1, total bilirubin 6.7, AST 402, ALT 84, alkaline phosphatase 148, total protein 6.3, albumin 1.6 and lipase 34. RADIOLOGICAL DATA: CT reveals [id number]-[id number] volume ascites, worsened since [facility] [address] [facility] [address] CONSULTATION Name: MAUREEN GUERRERO Room #: [address] [place] [address] IN .R.#: [id number] Admission: 05/21/18 ������������������ Attend Phys: Shan Mata MD Discharge: ������������������ Date of : 84 Report #: [id number] April, hepatomegaly with steatosis, recanalized umbilical vein and splenomegaly. ASSESSMENT AND PLAN: In summary, the patient has mild peritoneal signs and massive abdominal distention. Her presentation is consistent with subacute bacterial peritonitis and ascites secondary to acute and chronic liver disease. We would proceed with antibiotic therapy, urgent paracentesis to relieve the pressure to confirm the diagnosis with albumin coverage 25 grams IV. I would take out no more than 5-7 liters. We will send studies including cell culture, white count with differential, albumin, protein, cytology. Thanks for allowing me to participate in her care. We will follow concurrently. Sincerely, ��������������������������������������������� <ELECTRONICALLY SIGNED> ���������������������������������������� By: Selwyn Tamyao MD ��������������������������������������������� 05/27/18 1010 0937 04 Goldy Katz MD /nt
--- NOTE | 2018-05-27 10:56 | NUR ---
ASSUMED CARE OF PT AT 0700 THIS SHIFT. PT HAS BEEN COOPERATIVE, ALERT AND ORIENTED THIS MORINIG, HOWEVER WAS DROWSY WITH INCREASED CONFUSION AFTER COUGH SYRUP. PT HAS URINARY FREQUENCY. PT HAS TRANSFER ORDERS OUT OF ICU. PT HAS HAD FAMILY VISIT, EDUCATION WAS PROVIDED. PLAN OF CARE IS TO CONTINUE TO MONITOR PT CLOSELY AND TRANSFER PT OUT OF ICU. PT IS CURRENTLY RESTING COMFORTABLY IN ROOM.
--- NOTE | 2018-05-27 12:10 | NUR ---
Director Of Cath Lab spoke with [facility]. They have a palliative FORECAST ANALYST that can do home visits with the pt at [facility]. They do not have full hh services. [place] development planner has faxed referral to them for consideration of FORECAST ANALYST f/u at [facility]. [place] time frame uncertain. Pt transfering back out of the ICU today. The attending to discuss with GI regarding outpt followup. Will follow.
--- NOTE | 2018-05-27 13:56 | NUR ---
FAXED REFERRAL TO [facility] SPOKE WITH BRAVO IN ADM. SHE RECEIVED REFERRAL AND WILL REVIEW. DCP TO FOLLOW.
[2018-05-28 00:05] VITALS: BP 107/74
--- NOTE | 2018-05-28 04:26 | NUR ---
ASSUMED PT CARE AT 1900. VSS. PT A&0X4. STILL LETHARGIC. PT COMPLAINED OF PAIN AT AT THE START OF SHIFT, IV FENTANYL HAD TO BE GIVEN DUE TO HER PERSISTENCE. ASSESSMENTS AND MEDS ARE DOCUMENTED, PT GETS ST WITH ACTIVITY UP TO THE 130s. SHE WAS SOMEWHAT UNSTEADY ON HER FEET BUT WAS STILL ABLE TO MAKE IT TO THE BATHROOM BY HERSELF WITH VERY MINIMAL ASSIST. PT STILL HAS COUGH, COUGH MEDICINE ADMINISTERED AROUND MIDNIGHT WELL. LOOSE STOOL STILL PRESENT, BM TODAY, WILL CONTINUE TO MONITOR PER POC.
[2018-05-28 04:54] VITALS: BP 97/61
[2018-05-28 08:00] VITALS: BP 106/56
[2018-05-28 13:00] VITALS: BP 102/71
[2018-05-28 16:00] VITALS: BP 96/65
[2018-05-28 20:25] VITALS: BP 91/58
[2018-05-29 03:50] VITALS: BP 59/69
[2018-05-29 06:25] LABS: CALCIUM 8.4 mg/dL (8.5-10.1); CREATININE 0.8 mg/dL (0.6-1.0); MAGNESIUM 1.3 mg/dL (1.8-2.4); POTASSIUM 3.6 mmol/L (3.5-5.1)
[2018-05-29 06:34] LABS: HEMATOCRIT 36.6 % (37.0-47.0); HEMOGLOBIN 11.8 gm/dL (12.0-15.0); MCH 31.3 pg (26.0-34.0); MCHC 32.3 g/dL (28.0-37.0); MCV 96.9 fL (80.0-100.0); RBC 3.78 mil/uL (4.20-5.00); WBC 6.3 thou/uL (4.0-11.0)
[2018-05-29 10:00] VITALS: BP 95/56
[2018-05-29 13:00] VITALS: BP 100/63
[2018-05-29 16:00] VITALS: BP 103/73
--- NOTE | 2018-05-29 16:50 | NUR ---
SHIFT SUMMARY: IN AM, PT COMPLAINT OF ABDOMINAL PAIN [phone]. HYDROCODONE GIVEN WITH PT EVENTUALLY RESTING QUIETLY, LATER STATED PAIN LEVEL WAS ONLY DOWN TO 7/10. ATIVAN PO GIVEN FOR ANXIETY, PT NOTED TO REST COMFORTABLY AFTER MED ADMINSTRATION. JAUNDICED, ONE ASSIST TO BATHROOM, SR/ST, LUNGS DIMINISHED THROUGHOUT, ABDOMEN DISTENDED, ROUNDED, FIRM, AMBULATES TO BATHROOM WITH ONE ASSIST, VOIDS. SLOWLY PROGRESSING.
[2018-05-29 19:56] VITALS: BP 98/63
[2018-05-30 03:27] VITALS: BP 96/60
--- NOTE | 2018-05-30 04:31 | NUR ---
ASSESSMENT DOCUMENTED.PT BEEN RESTING IN NO ACUTE DISTRESS.PT BEEN UP TO BR WITH DIARRHEA SEVERAL TIMES WITH ASSIST.ON LACTULOSE TX.DENIES PAIN.VSS.PT TACHYCARDIAC WITH HR IN 130S WITH ACTIVITIES.AFEBRILE.ABD REMAINS DISTENDED D/T ASCITIS.PT DENIES NEEDS AT THIS TIME.WILL CONT TO MONITOR PER POC.
[2018-05-30 08:04] VITALS: BP 92/57
[2018-05-30 11:52] LABS: ALBUMIN 1.6 g/dL (3.4-5.0); CALCIUM 8.4 mg/dL (8.5-10.1); CREATININE 0.9 mg/dL (0.6-1.0); POTASSIUM 3.4 mmol/L (3.5-5.1); TOTAL BILIRUBIN 5.1 mg/dL (<0.1-1.0); TOTAL PROTEIN 6.1 g/dL (6.4-8.2)
[2018-05-30 13:20] VITALS: BP 102/69
--- NOTE | 2018-05-30 15:39 | NUR ---
met with patient and reviewed hospice philosophy and services. Patient has met with Hospice. Discussed Hospice house and home with Hospice. hospice pallative care is full at this time. Patient appears to want to f/u with [facility] as has been suggested. [facility]ative care liason Karina visited with patient today to review their services. Patient agreeable to pallative services at home per [facility]. Plan home with pallative care. [email or web address] following.
[2018-05-30 16:42] VITALS: BP 106/71
--- NOTE | 2018-05-30 17:04 | NUR ---
ASSUMED CARE OF PT AT SHIFT CHANGE. ASSESSMENTS CHARTED. MEDS GIVEN PER JUN. PT ALERT AND ORIENTED, UP TO COMMODE WITH ASSIST, TOLERATES WELL. PT MOVES IN BED BY SELF. VSS, HR ELEVATED WITH ACTIVITY. PT HAD SEVERAL LOOSE STOOLS THIS SHIFT- ON LACTLOSE TREATMENT. SW MET WITH PT AND FAMILY, HOPES TO DC HOME TOMORROW WITH PALLIATIVE CARE. PAIN RATED AT 7, PT RECEIVING SCHEDULED GABAPENTIN NARCS ARE TRYING TO BE AVOIDED. PT DENIES CONCERNS AT THIS TIME. WILL CONTINUE TO MONITOR AND FOLLOW POC.
[2018-05-30 20:28] VITALS: BP 97/63
[2018-05-31 04:23] VITALS: BP 89/60
[2018-05-31 07:23] VITALS: BP 89/58
--- NOTE | 2018-05-31 07:25 | NUR ---
ASSESSMENT DOCUMENTED.PT BEEN RESTING IN NO ACUTE DISTRESS.VSS.PT WITH VERY UNSTEADY GAIT,STAFF ASSIST WITH TOILETING AND TRANSFERS.PAIN MEDS PER ORDERS.POC IS TO DISCHARGE TO HOME W/POSSIBLE PALLIATIVE CARE TODAY OR TOMORROW.WILL CONT TO MONITOR PER POC.
[2018-05-31] MEDS ORDERED: SPIRONOLACTONE100 M1 PO (08:55)
[2018-05-31] MEDS ORDERED: OXYCODONE HCL10 MG PO (08:55)
[2018-05-31] MEDS ORDERED: XIFAXAN550 MG PO (08:55)
[2018-05-31] MEDS ORDERED: PRAZOSIN HCL1 MG PO (08:55)
[2018-05-31] MEDS ORDERED: GABAPENTIN 100100 MG PO (08:56)
[2018-05-31] MEDS ORDERED: HYDROXYZINE HCL50 MG PO (08:57)
[2018-05-31] MEDS ORDERED: LACTULOSE20 GM/30 M PO (08:57)
[2018-05-31] MEDS ORDERED: ZOLOFT 50 MG TA50 M1 PO (08:57)
[2018-05-31] MEDS ORDERED: CARAFATE 1 GM TA1 G1 PO (08:58)
[2018-05-31] MEDS ORDERED: FOLIC ACID1 MG PO (08:58)
[2018-05-31] MEDS ORDERED: ZOFRAN ODT4 MG DISSOLVE (08:58)
[2018-05-31] MEDS ORDERED: PEPCID20 MG PO (08:58)
[2018-05-31] MEDS ORDERED: LASIX 40 MG TAB40 M2 PO (08:58)
[2018-05-31] MEDS ORDERED: PRENATAL PO (08:59)
--- NOTE | 2018-05-31 10:41 | NUR ---
ASSUMED CARE OF PT AT 0700 THIS SHIFT. PT HAS BEEN COOPERATIVE, TENDER WITH PRESSURE ON BELLY, DENIES PAIN. PT HAD SOME CONFUSION ABOUT WHAT TIME OF DAY IT WAS THIS MORNING, THINKING IT WAS NIGHT. PT WAS ABLE TO RE-ORIENT. PT HAS DISCHARGE ORDERS, PLAN OF CARE IS TO DISCHARGE PT THIS SHIFT. PT HAS NOT HAD VISITORS YET THIS SHIFT, EDUCATION WAS PROVIDED. PT IS CURRENTLY RESTING COMFORTABLY IN ROOM.
[2018-05-31 10:44] VITALS: BP 89/58
[2018-05-31 11:03] VITALS: BP 97/65
[2018-05-31 12:19] VITALS: BP 89/58
--- NOTE | 2018-05-31 12:58 | NUR ---
PT. DISCHARGING TODAY TO HOME WITH [facility] AND [facility]. FAXED DC ORDERS/SUMMARY TO [facility] AND SPOKE WITH FIDELINA IN ADM.SHE RECEIVED DC ORDERS. ALSO NOTIFIED ADM. AT [facility] OF DISCHARGE AND THEY WILL NOTIFY PT. OF TIME OF VISITS.
== END 2018-05-31 13:40 | disposition home health service (06) | DRG 871 ==
LOC: ER 09:22 → EROBS 12:10 → 2N 12:10 → ICU 05-27 04:00 → 2N 05-27 18:03 → ENTRNSPT 05-31 13:30 → EDTRNSPTSTS 05-31 13:33 → 2N 05-31 13:40
PROVIDERS: Emergency Medicine; Internal Medicine; Internal Medicine Gastroenterology; Nurse Practitioner; Radiology Diagnostic Radiology; ADMIT Hospitalist
PROC: 0W9G3ZZ Drainage of Peritoneal Cavity, Percutaneous Approach (ICD-10-PCS; principal; 2018-05-22)
PROC: B54MZZA Ultrasonography of Right Upper Extremity Veins, Guidance (ICD-10-PCS; 2018-05-25)
PROC: 05HY33Z Insertion of Infusion Device into Upper Vein, Percutaneous Approach (ICD-10-PCS; 2018-05-25)
PROC: 0W9G3ZZ Drainage of Peritoneal Cavity, Percutaneous Approach (ICD-10-PCS; 2018-05-26)
DX: A41.9 Sepsis, unspecified organism (principal); E43 Unspecified severe protein-calorie malnutrition; K65.8 Other peritonitis; E87.1 Hypo-osmolality and hyponatremia; F05 Delirium due to known physiological condition; Z68.1 Body mass index [BMI] 19.9 or less, adult; Z51.5 Encounter for palliative care; K70.31 Alcoholic cirrhosis of liver with ascites; K70.40 Alcoholic hepatic failure without coma; F43.10 Post-traumatic stress disorder, unspecified; F10.20 Alcohol dependence, uncomplicated; G43.909 Migraine, unspecified, not intractable, without status migrainosus; K70.11 Alcoholic hepatitis with ascites; G89.4 Chronic pain syndrome; D64.9 Anemia, unspecified; E87.6 Hypokalemia; F41.9 Anxiety disorder, unspecified; F31.9 Bipolar disorder, unspecified; Z87.891 Personal history of nicotine dependence; Z87.442 Personal history of urinary calculi; Z79.899 Other long term (current) drug therapy; Z80.8 Family history of malignant neoplasm of other organs or systems
CPT/HCPCS: 10081; 27000